=== PATIENT | female | born 1945 | race Caucasian/White ===

== ENCOUNTER 2022-01-31 15:50 | Outpatient (CLI) | payer MEDICARE, OTHER, SELFPAY ==
--- NOTE | ~2022-01-31 | DEXA_ITS ---
Bone Density Report Name: DAMARIS XIONG Age: 76 Sex: Female Ethnicity: White Date of : 1945 Indication: postmenopausal; screening for osteoporosis; height loss; Referring Provider: SEBASTIAN APODACA Study: Bone densitometry was performed. Exam Date: January 31, 2022 Accession number: [id number] Bone Density: Region BMD T-score Z-score Classification AP Spine(L1-L4) 1.277 2.1 4.5 Normal Femoral Neck (Left) 0.696 -1.4 0.7 Osteopenia Total Hip (Left) 0.974 0.3 2.0 Normal Femoral Neck (Right) 0.687 -1.5 0.6 Osteopenia Total Hip (Right) 0.883 -0.5 1.3 Normal Total Hip Mean 0.929 -0.1 1.7 Normal World Health Organization criteria for BMD impression classify patients as: Normal (T-score at or above -1.0), Osteopenia (T-score between -1.0 and -2.5), or Osteoporosis (T-score at or below -2.5). 10-year Fracture Risk(1): Major Osteoporotic Fracture 9.4% Hip Fracture 1.6% Reported Risk Factors: [place] (), Neck BMD=0.696, BMI=42.1 (1) FRAX(R) Version 3.08. Fracture probability calculated for an untreated patient. Fracture probability may be lower if the patient has received treatment. Clinical Information Provided by Patient: Patient maximum height was 63 Menopause Age: 55 Drinks caffeinated beverages Onset of menses at age 18 Number of children 1 Impression: The patient has low bone mass, based on the Right Femoral Neck T-score. The patient has an estimated ten-year risk of hip fracture of 1.6% and an estimated ten-year risk of major fracture of 9.4%, based on the WHO FRAX algorithm. Discussion: BONE DENSITY IS LOW AT ONE OR MORE SKELETAL SITES. This patient's lowest T-score is low at one or more skeletal sites. It meets the World Health Organization's (WHO) criteria for ?low bone mass? (T-score between -1.0 and -2.5). The patient's 10-year risk of fracture as calculated by FRAX is less than the threshold where pharmacological therapy is recommended by the National Osteoporosis Foundation (NOF). However, all treatment decisions require clinical judgment and consideration of individual patient factors, including patient preferences, comorbidities, previous drug use, risk factors not captured in the FRAX model (e.g., frailty, falls, vitamin D deficiency, increased bone turnover, interval significant decline in bone density) and possible under or overestimation of fracture risk by FRAX. The patient should follow a healthful lifestyle (good nutrition with adequate calcium and vitamin D, and appropriate weight-bearing exercise). Follow-Up: Consider repeating this study in 2 to 3 years to reassess this patient's status, or sooner if there is some new clinical indication. Reported by: CLARISA on 01/31/2022 4:21:00 PM.
== END 2022-01-31 15:51 | disposition home or self-care (01) ==
PROVIDERS: PCP Family Medicine; Visit Provider Family Medicine
DX: Z78.0 Asymptomatic menopausal state (principal); M85.852 Other specified disorders of bone density and structure, left thigh; M85.851 Other specified disorders of bone density and structure, right thigh
CPT/HCPCS: 77080

== ENCOUNTER 2022-07-06 12:07 | Outpatient (CLI) | payer MEDICARE, OTHER, SELFPAY | END 2022-07-06 12:08 | disposition home or self-care (01) | PROVIDERS: PCP Family Medicine; Visit Provider Physician Assistant Medical | DX: M79.672 Pain in left foot (principal) | CPT/HCPCS: 73630 ==

== ENCOUNTER 2023-05-06 15:25 | Emergency (ER) | payer MEDICARE, SELFPAY ==
--- NOTE | 2023-05-06 15:44 | ED.FEMALEGU ---
HPI - Female Genitourinary General Chief complaint: Urogenital-Female Stated complaint: urinary issue/ head cold Time Seen by Provider: 05/06/23 15:26 Source: patient Mode of arrival: ambulatory Limitations: no limitations History of Present Illness HPI Narrative: Patient is a 78-year-old female who presents with 1 day of pain with urination and frequency. Denies any low back pain, fever, chills, nausea, vomiting, diarrhea. Also reports 5 days of congestion and cough. Patient has been taking Tessalon Perles and thsm-yol-ijgjygi cold and flu medication. MD elicited complaint: dysuria Related Data Allergies Allergy/AdvReac Type Severity Reaction Status Date / Time Ltohelp-LNA-YjC Reductase Allergy Severe body aches Verified 05/06/23 15:37 Inhibitor [Ohmzhas-Xhf-Hli Reductase Inhibitor] Review of Systems Review of Systems: All systems reviewed & are unremarkable except as noted in HPI and below Constitutional: Constitutional: Denies chills, Denies fever(s), Denies headache(s), Denies malaise and Denies weakness Eyes: Eyes: Denies change in vision, Denies eye discharge and Denies irritation ENT: Denies otalgia, Denies headache(s), Reports nasal congestion, Denies nasal discharge, Denies sinus pain and Denies sore throat Cardiovascular: Cardiovascular: Denies chest pain, Denies edema, Denies palpitations and Denies dyspnea Respiratory: Respiratory: Reports cough and Denies dyspnea Gastrointestinal: Gastrointestinal: Denies abdominal pain, Denies diarrhea, Denies nausea and Denies vomiting Genitourinary: Genitourinary: Denies hematuria, Reports nocturia, Reports dysuria, Denies flank pain and Reports urinary urgency Musculoskeletal: Musculoskeletal: Denies back pain and Denies numbness Integumentary/Breasts: Skin/Breast: Denies pruritus and Denies rash Neurologic: Denies headache(s), Denies numbness and Denies weakness Psychiatric: Psychiatric: Reports no additional psychiatric complaints Endocrine: Endocrine: Denies palpitations PMFSH Past Medical History Medical History Colon polyp Last colonoscopy 2017 Essential hypertension Left leg pain Mixed hyperlipidemia Obesity, Class III, BMI 40-49.9 (morbid obesity) Osteopenia Surgical History Surgical History History of cholecystectomy History of lumpectomy (~1995) right breast History of partial knee replacement (~2015) left knee History of tonsillectomy and adenoidectomy History of total knee replacement (~2017) right knee History of urinary tract surgery (~1957) growth removal Family History Family History Father Family history of alcoholism, Onset Age: 74 Patient's father is , Onset Age: 74 Mother Family history of malignant neoplasm of ovary, Onset Age: 76 Social History Social History Smoking status: Never smoker Second hand tobacco smoke exposure: No Alcohol intake: current Substance use: never Substance use type: does not use Lack of Transportation: No Lack of Food: Never True Current Housing: I Have Housing Concerned About Future Housing: No Difficulty Paying Gas/Electric Bills: No Difficulty Paying for Meds: No Currently Unemployed: No Education: High School Diploma/GED Difficulty w/ Childcare or Family Care: No Living arrangements: with family Occupation/Education: retired Gender identity (if verbalized by the patient): Female Sexual Orientation (if Verbalized by the Patient): Straight or Heterosexual Spiritual care concerns: No Agree to blood products: Yes Comments At time of signature, agree with nursing past medical, surgical, social and family history. There is no relevant family history pertinent to the presenting complaint. Exam
[2023-05-06 15:47] VITALS: BP 132/61; PULSE 102; RESP 16; TEMP 36.9; O2SAT 98
== END 2023-05-06 16:20 | disposition home or self-care (01) ==
PROVIDERS: Emergency Provider Nurse Practitioner Family; PCP Family Medicine
DX: N30.01 Acute cystitis with hematuria (principal); B96.89 Other specified bacterial agents as the cause of diseases classified elsewhere; J06.9 Acute upper respiratory infection, unspecified; I10 Essential (primary) hypertension; E78.2 Mixed hyperlipidemia; E66.01 Morbid (severe) obesity due to excess calories; Z68.39 Body mass index [BMI] 39.0-39.9, adult; M85.80 Other specified disorders of bone density and structure, unspecified site; Z96.653 Presence of artificial knee joint, bilateral
CPT/HCPCS: 81003; 87077; 87086; 87186; 99213; G0463

== ENCOUNTER 2023-07-03 04:22 | Emergency (ER) | payer MEDICARE, SELFPAY ==
--- NOTE | ~2023-07-03 | XR_ITS ---
EXAMINATION: XR chest 2V DATE: 07/03/2023 04:57 INDICATION: Shortness of breath. Dizziness. TECHNIQUE: Frontal and lateral views of the chest were obtained. COMPARISON: None. FINDINGS: There is no pneumonia, pleural effusion, or pneumothorax. The heart size is normal. Surgica l clips in the right upper quadrant are likely from cholecystectomy. IMPRESSION: 1. No acute cardiopulmonary disease. Reviewed, dictated and finalized at location E.
--- NOTE | 2023-07-03 04:23 | ECG_ITS ---
SEE SCANNED COPY FOR CONFIRMED REPORT MTDD
[2023-07-03 04:24] VITALS: BP 119/51; PULSE 78; RESP 23; O2SAT 100
[2023-07-03 04:33] VITALS: TEMP 36.4
[2023-07-03 04:39] VITALS: PULSE 72; O2SAT 100
[2023-07-03 05:20] LABS: Basophils Percent Auto 0.5 % (0.2-1.2); Eosinophils Absolute Auto 0.3 K/mm3 (0-0.3); Hematocrit 44.9 % (37.0-47.0); Hemoglobin 14.2 g/dL (12.0-15.0); Immature Granulocyte Absolute 0.03 K/mm3 (0.00-0.031); Immature Granulocyte Percent A 0.4 % (0-0.5); Lymphocytes Absolute Auto 1.32 K/mm3 (0.9-3.2); Mean Corpuscular HGB Conc 31.6 g/dl (32-36); Mean Corpuscular Hemoglobin 27.3 pg (26-34); Mean Corpuscular Volume 86.3 fl (80-100); Mean Platelet Volume 10.9 fl (7.4-10.4); Monocytes Absolute Auto 0.4 K/mm3 (0.1-0.6); Monocytes Percent Auto 4.8 % (2.6-8.5); Neutrophils Absolute Auto 6.2 K/mm3 (1.3-6.7); Neutrophils Percent Auto 75.3 % (45.5-73.1); Platelet Count Result 215 k/mm3 (150-375); Red Cell Distribution Width 14.1 % (11.5-14.5); White Blood Count 8.3 K/mm3 (4.5-10.0)
[2023-07-03 05:32] LABS: Alanine Aminotransferase 18 U/L (6-35); Albumin Level 4.2 g/dL (3.5-5.1); Alkaline Phosphatase 74 U/L (38-126); Anion Gap 6 mmol/L (4-12); Aspartate Amino Transferase 22 U/L (14-36); Bilirubin,Total 1.3 mg/dL (0.2-1.3); Blood Urea Nitrogen 17 mg/dL (7-17); Calcium 9.3 mg/dL (8.4-10.2); Carbon Dioxide 23 mmol/L (22-30); Chloride 110 mmol/L (98-107); Estimated CRCL calculation 57 ml/min; Estimated Glomerular Filt Rate > 60; Glucose 121 mg/dL (65-110); Potassium 4.1 mmol/L (3.4-5.0); Sodium 139 mmol/L (137-145)
[2023-07-03 05:33] LABS: Lactic Acid Reflex 1.4 mmol/L (0.7-2.0)
[2023-07-03 05:35] LABS: Magnesium 2.2 mg/dL (1.6-2.3)
[2023-07-03 05:36] LABS: INR 0.9; Prothrombin Time 12.7 Seconds (11.1-14.7)
[2023-07-03 05:37] LABS: Partial Thromboplastin Time 29.1 Seconds (22.3-36.8)
[2023-07-03 05:41] VITALS: BP 138/112; PULSE 77; RESP 18; O2SAT 100
--- NOTE | 2023-07-03 05:43 | ED.GENADULT ---
HPI - General Adult General Chief complaint: Shortness of Breath/Dyspnea Stated complaint: lightheaded, dizzy, sob Time Seen by Provider: 07/03/23 04:26 History of Present Illness HPI narrative: Patient 78-year-old female who presents emergency department chief complaint of lightheadedness dizziness patient states that was up stairs when her got up and felt lightheaded the patient states she felt a little short of breath at the time of reports that she had a bit of tightness in her chest at this time patient reports that her symptoms are improved the patient denies passing out or syncopal episode the patient reports no vomiting or diarrhea Related Data Allergies Allergy/AdvReac Type Severity Reaction Status Date / Time Urxauub-MWS-GnB Reductase Allergy Severe body aches Verified 05/06/23 15:37 Inhibitor [Rcbrxrd-Nhj-Gyf Reductase Inhibitor] Review of Systems Review of Systems: A 10 system review of systems was completed on the patient and is negative except for what is stated in the HPI. Nursing and ancillary documentation was reviewed. [facility] Past Medical History Medical History Colon polyp Last colonoscopy 2016 Essential hypertension Left leg pain Mixed hyperlipidemia Obesity, Class III, BMI 40-49.9 (morbid obesity) Osteopenia Surgical History Surgical History History of cholecystectomy History of lumpectomy (~1995) right breast History of partial knee replacement (~2015) left knee History of tonsillectomy and adenoidectomy History of total knee replacement (~2017) right knee History of urinary tract surgery (~1957) growth removal Family History Family History Father Family history of alcoholism, Onset Age: 74 Patient's father is , Onset Age: 74 Mother Family history of malignant neoplasm of ovary, Onset Age: 76 Social History Social History Smoking status: Never smoker Second hand tobacco smoke exposure: No Alcohol intake: current Substance use: never Substance use type: does not use Lack of Transportation: No Lack of Food: Never True Current Housing: I Have Housing Concerned About Future Housing: No Difficulty Paying Gas/Electric Bills: No Difficulty Paying for Meds: No Currently Unemployed: No Education: High School Diploma/GED Difficulty w/ Childcare or Family Care: No Living arrangements: with family Occupation/Education: retired Gender identity (if verbalized by the patient): Female Sexual Orientation (if Verbalized by the Patient): Straight or Heterosexual Spiritual care concerns: No Agree to blood products: Yes Exam Narrative: GENERAL: Well-appearing, well-nourished, and in no acute distress. HEAD: Normocephalic, atraumatic. EYES: PERRLA and EOMI. ENT: Nares clear, no rhinorrhea or epistaxis. Mucous membranes moist. NECK: Supple. CHEST: Clear to auscultation. No respiratory distress. HEART: Regular rate and rhythm. No murmur heard. Normal peripheral pulses. ABDOMEN: Soft, nontender, nondistended, normal active bowel sounds. EXTREMITIES: Normal range of motion. No edema. SKIN: Warm, dry, no rash. NEURO: No focal deficits. Alert and oriented x3. PSYCH: Normal mood and affect. Course Vital Signs Vital signs: Vital Signs Pulse Rate 78 07/03/23 04:24 Respiratory Rate 23 H 07/03/23 04:24 Blood Pressure 119/51 L 07/03/23 04:24 Pulse Oximetry 100 07/03/23 04:24 Oxygen Delivery Room Air 07/03/23 04:24 Temperature 36.4 C 07/03/23 04:33 Pulse Rate 77 07/03/23 05:41 Respiratory Rate 18 07/03/23 05:41 Blood Pressure 138/112 H 07/03/23 05:41 Pulse Oximetry 100 07/03/23 05:41 Oxygen Delivery Room Air 07/03/23 04:
[2023-07-03 05:46] LABS: Appearance Urine Cloudy (Clear); Bacteria Urine None Seen /hpf; Bilirubin Urine Negative (Negative); Blood Urine Negative (Negative); Color Urine Yellow (Yellow); Glucose Urine UA Negative (Negative); Ketones Urine Trace mg/dL (Negative); Leukocyte Esterase Ur 1+ LEU/UL (Negative); Nitrate Urine Negative (Negative); Non Pathogenic Casts 0-2; Protein Urine Trace mg/dL (Negative); Specific Grav Ur 1.026 (1.001-1.035); Squamous Epithelial Cell Urine Few /hpf (Few); pH Urine 5.5 (5.0-9.0)
[2023-07-03 05:48] LABS: NT Pro B Type Natriuretic Pept 31 pg/mL (19.9-100); Troponin I < 0.012 ng/mL (0.000-0.034)
[2023-07-03 05:53] LABS: Add Urine Microscopic? YES
== END 2023-07-03 06:38 | disposition home or self-care (01) ==
PROVIDERS: Emergency Provider Emergency Medicine; PCP Family Medicine
DX: R55 Syncope and collapse (principal); N39.0 Urinary tract infection, site not specified; I10 Essential (primary) hypertension; E78.5 Hyperlipidemia, unspecified
CPT/HCPCS: 36415; 71046; 80053; 81001; 83605; 83735; 83880; 84484; 85025; 85610; 85730; 87086; 87088; 93005; 99284

== ENCOUNTER 2023-08-08 15:27 | Emergency (ER) | payer MEDICARE, SELFPAY ==
--- NOTE | ~2023-08-08 | XR_ITS ---
EXAM: XR abdomen obstructive series DATE: 08/08/2023 15:56 HISTORY: constipation- abdomen pain-rlq . COMPARISON: None available. FINDINGS: Clear lung bases. The dome of the liver is excluded from the ulzhh-sc-mwsn. Otherwise, no free air evident. Cholecystectomy clips. Normal bowel gas pattern. No organomegaly. Pelvic phlebolith s. Unremarkable volume of colonic feces. Severe lumbar degenerative disc disease. 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 IMPRESSION: No radiographic evidence of obstruction or ileus. Reviewed, dictated and finalized at location K.
--- NOTE | 2023-08-08 15:28 | ED.FEMALEGU ---
HPI - Female Genitourinary General Chief complaint: Urogenital-Female Stated complaint: stomach pain,constipation,urinary issue Time Seen by Provider: 08/08/23 15:28 Source: patient Mode of arrival: ambulatory Limitations: no limitations History of Present Illness HPI Narrative: Estefani is a 78-year-old female patient presenting to the clinic today with complaints of right lower abdominal pain, nausea, constipation, and urinary frequency. She reports no BM x4 days. No fever, chills, or vomiting. Is belching but having little flatulence. Does feel bloated. Is having a lot of tenderness to the right lower quadrant that is worse when laying on that side and worse with movement. Quality of the pain is dull and states that is pretty constant-rating the pain an 8/10 currently. She states she take some azo for urinary relief. History of cholecystectomy-40 years ago. Related Data Allergies Allergy/AdvReac Type Severity Reaction Status Date / Time Dgivccn-VWE-PcH Reductase Allergy Severe body aches Verified 08/08/23 15:39 Inhibitor [Hpukzpm-Ddb-Sqa Reductase Inhibitor] Review of Systems Review of Systems: Pertinent positives per HPI. Patient denies any fever, chills, rash, headache, visual changes, dizziness, cough, runny nose, sore throat, shortness of breath, chest pain, palpitations, vomiting, or diarrhea. [facility] Past Medical History Medical History Colon polyp Last colonoscopy 2016 Essential hypertension Left leg pain Mixed hyperlipidemia Obesity, Class III, BMI 40-49.9 (morbid obesity) Osteopenia Surgical History Surgical History History of cholecystectomy History of lumpectomy (~1995) right breast History of partial knee replacement (~2015) left knee History of tonsillectomy and adenoidectomy History of total knee replacement (~2017) right knee History of urinary tract surgery (~195) growth removal Family History Family History Father Family history of alcoholism, Onset Age: 74 Patient's father is , Onset Age: 74 Mother Family history of malignant neoplasm of ovary, Onset Age: 76 Social History Social History Smoking status: Never smoker Second hand tobacco smoke exposure: No Alcohol intake: current Substance use: never Substance use type: does not use Lack of Transportation: No Lack of Food: Never True Current Housing: I Have Housing Concerned About Future Housing: No Difficulty Paying Gas/Electric Bills: No Difficulty Paying for Meds: No Currently Unemployed: No Education: High School Diploma/GED Difficulty w/ Childcare or Family Care: No Living arrangements: with family Occupation/Education: retired Gender identity (if verbalized by the patient): Female Sexual Orientation (if Verbalized by the Patient): Straight or Heterosexual Spiritual care concerns: No Agree to blood products: Yes Comments At the time of my signature, I reviewed and agree with the nursing past medical, surgical, social, and family history. There is no relevant family history pertinent to the patient complaint. Exam Narrative: General: Well-developed, obese, in no apparent distress. Head: Normocephalic, atraumatic. Cardio: Regular rate and rhythm, s1 and s2 normal, no murmur appreciated. Resp: Clear to auscultation bilaterally, no rhonchi, rales, wheezing or rubs. Abdomen: Soft, pliable,distended per patient, bowel sounds present in all quadrants, tender to palpation in all quadrants but worse in the right lower quadrant, no organomegly, no CVAT tenderness. Course Course Emergency Course: Portions of this record may have been created with voice recognition software. Level of Care: Express Care Visit Ofe
[2023-08-08 15:36] VITALS: BP 157/102; PULSE 74; RESP 18; TEMP 36.6; O2SAT 100
== END 2023-08-08 16:11 | disposition short-term general hospital (02) ==
PROVIDERS: Emergency Provider Nurse Practitioner Family; PCP Family Medicine
DX: R10.31 Right lower quadrant pain (principal); R11.0 Nausea; R35.0 Frequency of micturition; I10 Essential (primary) hypertension; E78.2 Mixed hyperlipidemia; M85.80 Other specified disorders of bone density and structure, unspecified site; E66.01 Morbid (severe) obesity due to excess calories; Z68.39 Body mass index [BMI] 39.0-39.9, adult; Z96.653 Presence of artificial knee joint, bilateral
CPT/HCPCS: 74019; 81003; 87086; 99213; G0463

== ENCOUNTER 2023-08-08 16:30 | Emergency (ER) | payer MEDICARE, SELFPAY ==
--- NOTE | ~2023-08-08 | CT_ITS ---
EXAMINATION: CT abdomen pelvis w con DATE: 08/08/2023 17:49 INDICATION: RLQ pain TECHNIQUE: Computed tomography (CT) of the abdomen and pelvis was performed with 100 mL Omnipaque-350 intravenous contrast. Automated exposure control and iterative reconstruction technique were employe d. The dose-length product was 1210.66 mGy-cm. COMPARISON: None. FINDINGS: Lower thorax: Unremarkable Liver: Normal. Biliary/Gallbladder: Gallbladder is absent. Mild intra and extrahepatic bile duct dilation, likely se condary to cholecystectomy. Pancreas: No mass or duct dilation. Spleen: Normal. Adrenals:No mass. Kidneys: Patchy right lower pole enhancement. Moderate perinephric stranding/fluid. Mild right hydron ephrosis. Right urothelial enhancement. The left kidney is normal. 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 GI tract: Small hiatal hernia. No small or large bowel dilation. Normal appendix. Diverticulosis with out diverticulitis. Mesentery/Peritoneum: No ascites, mass, or free air. Retroperitoneum: No mass. Atherosclerotic abdominal aortic and/or arterial calcifications. Pelvis: Pelvic organs are within normal limits. Soft Tissues: Soft tissues and body wall unremarkable. Bones: No acute osseous finding. Chronic superior end plate deformity at T12. Chronic multilevel gra de 1 lumbar listheses likely secondary to degenerative changes. IMPRESSION: 4 mm calcification in the urinary bladder may represent a recently passed stone. Mild residual right hydronephrosis and moderate perirenal and periureteral inflammatory changes. Patchy right renal parenchymal and diffuse urothelial enhancement may be secondary to edema and bland inflammatory change or infection. Ascending infection with pyelonephritis should remain in the diffe rential. Reviewed, dictated and finalized at location K. IMPRESSION: 4 mm calcification in the urinary bladder may represent a recently passed stone . Mild residual right hydronephrosis and moderate perirenal and periureteral in flammatory changes. Patchy right renal parenchymal and diffuse urothelial enhancement may be second leatha to edema and bland inflammatory change or infection. Ascending infection wi th pyelonephritis should remain in the differential.
[2023-08-08 16:40] VITALS: BP 160/57; PULSE 80; RESP 19; TEMP 36.4; O2SAT 100
--- NOTE | 2023-08-08 16:48 | ED.ABDPAIN ---
HPI - Abdominal Pain General Chief Complaint: Abdominal Pain Stated Complaint: abd pain Time Seen by Provider: 08/08/23 16:34 History of Present Illness HPI narrative: 78-year-old female presenting to the emergency department for evaluation of 3 days of abdominal pain. Patient states that she has right lower quadrant pain that has been worsening. Patient had a initially presented to urgent care but was referred to the emergency department for further evaluation. Related Data Allergies Allergy/AdvReac Type Severity Reaction Status Date / Time Hsgdlbc-RII-IuW Reductase Allergy Severe body aches Verified 08/08/23 15:39 Inhibitor [Dltmtvn-Jan-Oju Reductase Inhibitor] Review of Systems Review of Systems: All systems reviewed & are unremarkable except as noted in HPI and below PMFSH Past Medical History Medical History Colon polyp Last colonoscopy 2016 Essential hypertension Left leg pain Mixed hyperlipidemia Obesity, Class III, BMI 40-49.9 (morbid obesity) Osteopenia Surgical History Surgical History History of cholecystectomy History of lumpectomy (~1995) right breast History of partial knee replacement (~2015) left knee History of tonsillectomy and adenoidectomy History of total knee replacement (~2018) right knee History of urinary tract surgery (~1957) growth removal Family History Family History Father Family history of alcoholism, Onset Age: 74 Patient's father is , Onset Age: 74 Mother Family history of malignant neoplasm of ovary, Onset Age: 76 Social History Social History Smoking status: Never smoker Second hand tobacco smoke exposure: No Alcohol intake: current Substance use: never Substance use type: does not use Lack of Transportation: No Lack of Food: Never True Current Housing: I Have Housing Concerned About Future Housing: No Difficulty Paying Gas/Electric Bills: No Difficulty Paying for Meds: No Currently Unemployed: No Education: High School Diploma/GED Difficulty w/ Childcare or Family Care: No Living arrangements: with family Occupation/Education: retired Gender identity (if verbalized by the patient): Female Sexual Orientation (if Verbalized by the Patient): Straight or Heterosexual Spiritual care concerns: No Agree to blood products: Yes Exam Narrative: APPEARANCE: Well appearing, no pain, no distress, well-nourished. HEAD: normocephalic, atraumatic. EYES: PERRLA/EOMI, conjunctivae clear. NOSE: Normal no drainage EARS:TMS clear with good light reflex. THROAT: Pharynx clear, no exudate. NECK: Supple. No adenopathy, no masses. RESPIRATORY: Airway patent, respirations nonlabored. Clear to auscultation bilaterally, no rales, rhonchi, wheezing. CARDIOVASCULAR: Regular rate and rhythm without murmurs rubs or gallops. ABDOMINAL: Right lower quadrant tenderness to palpation MUSCULOSKELETAL: Moves all extremities. Strength/ROM intact, No edema, No calf tenderness. NEURO: Alert. Cranial nerves II through XII intact. Grossly intact Course Vital Signs Vital signs: Vital Signs Temperature 97.6 F 08/08/23 16:40 Pulse Rate 80 08/08/23 16:40 Respiratory Rate 19 08/08/23 16:40 Blood Pressure 160/57 H 08/08/23 16:40 Pulse Oximetry 100 08/08/23 16:40 Oxygen Delivery Room Air 08/08/23 16:40 Temperature 97.6 F 08/08/23 16:40 Pulse Rate 75 08/08/23 18:16 Respiratory Rate 18 08/08/23 18:16 Blood Pressure 163/86 H 08/08/23 18:16 Pulse Oximetry 98 08/08/23 18:16 Oxygen Delivery Room Air 08/08/23 16:40 MDM - Abdominal Pain MDM Narrative Medical decision making narrative: 78-year-old female presents emergency department for evaluat
[2023-08-08 16:49] LABS: Basophils Percent Auto 0.3 % (0.2-1.2); Eosinophils Absolute Auto 0.1 K/mm3 (0-0.3); Eosinophils Percent Auto 0.7 % (0-4.4); Hematocrit 42.8 % (37.0-47.0); Hemoglobin 13.6 g/dL (12.0-15.0); Immature Granulocyte Absolute 0.03 K/mm3 (0.00-0.031); Immature Granulocyte Percent A 0.3 % (0-0.5); Lymphocytes Percent Auto 12.8 % (18.3-44.2); Mean Corpuscular HGB Conc 31.8 g/dl (32-36); Mean Corpuscular Hemoglobin 27.8 pg (26-34); Mean Corpuscular Volume 87.5 fl (80-100); Mean Platelet Volume 10.8 fl (7.4-10.4); Monocytes Absolute Auto 0.9 K/mm3 (0.1-0.6); Monocytes Percent Auto 8.4 % (2.6-8.5); Neutrophils Absolute Auto 7.9 K/mm3 (1.3-6.7); Neutrophils Percent Auto 77.5 % (45.5-73.1); Platelet Count Result 215 k/mm3 (150-375); Red Blood Count 4.89 M/mm3 (4.2-5.4); Red Cell Distribution Width 14.2 % (11.5-14.5); White Blood Count 10.2 K/mm3 (4.5-10.0)
[2023-08-08 16:58] LABS: Alanine Aminotransferase 23 U/L (6-35); Albumin Level 4.3 g/dL (3.5-5.1); Alkaline Phosphatase 75 U/L (38-126); Anion Gap 5 mmol/L (4-12); Aspartate Amino Transferase 26 U/L (14-36); Bilirubin,Total 1.4 mg/dL (0.2-1.3); Blood Urea Nitrogen 19 mg/dL (7-17); Calcium 9.2 mg/dL (8.4-10.2); Carbon Dioxide 28 mmol/L (22-30); Chloride 104 mmol/L (98-107); Estimated CRCL calculation 35 ml/min; Estimated Glomerular Filt Rate 37; Glucose 120 mg/dL (65-110); Lipase 110 U/L (23-300); Potassium 4.3 mmol/L (3.4-5.0); Sodium 137 mmol/L (137-145)
[2023-08-08] MEDS: HYDROmorphone HCL INJ (*CRX) 1 MG/ML SYR 0.5 MG IV PUSH (17:16)
[2023-08-08] MEDS: ONDANSETRON INJ 4 MG/2 ML VIAL IV PUSH (17:16)
[2023-08-08] MEDS: SODIUM CHLORIDE 0.9% IV 1,000 ML 999 ML IV CONT (17:16)
[2023-08-08 18:01] LABS: Add Urine Microscopic? YES; Appearance Urine Clear (Clear); Bacteria Urine None Seen /hpf; Bilirubin Urine Negative (Negative); Blood Urine Negative (Negative); Color Urine Dark Yellow (Yellow); Glucose Urine UA Negative (Negative); Ketones Urine Negative (Negative); Leukocyte Esterase Ur Negative LEU/UL (Negative); Need Manual Microscopic Reviewed; Nitrate Urine Positive (Negative); Non Pathogenic Casts 0-2; Protein Urine Negative (Negative); RBC Urine 0-2 /hpf (0-2); Specific Grav Ur 1.017 (1.001-1.035); Squamous Epithelial Cell Urine None Seen /hpf (Few); WBC Urine 0-5 /hpf (0-3)
[2023-08-08 18:16] VITALS: BP 163/86; PULSE 75; RESP 18; O2SAT 98
[2023-08-08] MEDS: CEPHALEXIN 500 MG CAPSULE PO (18:25)
== END 2023-08-08 18:32 | disposition home or self-care (01) ==
PROVIDERS: Physician Assistant; Emergency Provider Emergency Medicine; PCP Family Medicine
DX: N13.2 Hydronephrosis with renal and ureteral calculous obstruction (principal); R82.998 Other abnormal findings in urine; I10 Essential (primary) hypertension; E78.2 Mixed hyperlipidemia; E66.01 Morbid (severe) obesity due to excess calories; Z68.39 Body mass index [BMI] 39.0-39.9, adult; M85.80 Other specified disorders of bone density and structure, unspecified site; Z96.653 Presence of artificial knee joint, bilateral; Z86.010 Personal history of colon polyps; Z90.49 Acquired absence of other specified parts of digestive tract; R93.41 Abnormal radiologic findings on diagnostic imaging of renal pelvis, ureter, or bladder
CPT/HCPCS: 36415; 74019; 74177; 80053; 81001; 81003; 83690; 85025; 87086; 96361; 96374; 96375; 99284; A9270; J1170; J2405; J7030; Q9967

== ENCOUNTER 2024-08-18 07:18 | Outpatient (CLI) | payer MEDICARE, SELFPAY ==
--- OUTSIDE RECORDS SUMMARY | 2024-08-18 07:22 | XMS_ITS | Encounter Summary ---
Author Organization [facility] Address 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 Gender Identity Not on file Sexual Orientation Not on file documented as of this encounter Plan of Treatment Not on file documented as of this encounter Procedures Procedure Name Priority Date/Time Associated Diagnosis Comments PATHOLOGY Routine 03/23/2008 11:40 AM TRANSFORMER STOCK CLERK documented in this encounter Results * PATHOLOGY (03/23/2008 11:40 AM TRANSFORMER STOCK CLERK) FINAL REPORT [address] [address] Patient: DAMARIS XIONG : 1945 Procedure Date: 03/23/2008 Accession Date: 03/23/2008 Case No: [id number] Ordering Dr: LORA VILLAFANA Case types AW, BW, FW, NW and SH are performed by [facility], [place], [place] SURGICAL PATHOLOGY & NON-GYNECOLOGIC CYTOPATHOLOGY REPORT DIAGNOSIS LARGE INTESTINE, SIGMOID AT 20 CM, BIOPSY: - TUBULAR ADENOMA, FRAGMENTS. Specimen Description: Sigmoid- 20 cm. Operative Procedure: Colonoscopy. Patient Information/Histo ry/Diagnosis: Colon polyp(s). Adenomatous vs. hyperplastic vs. other. Gross: Received in one container labeled DhirajDamaris macias., sigmoid 20 cm are three white tissue fragments ranging from 0.2 cm to 0.3 cm. All are submitted in block A1. [facility] 03.23.2008 06:39 pm Microscopic: The slides are labeled [id number], Damaris Xiong Eloise. Sections of the sigmoid polyp at 20 cm show three pieces of tubular adenoma. There is no high-grade dysplasia or cancer. /[facility] 03.24.2008 09:48 am Staging Form: No. ELECTRONIC SIGNATURE FOR PRIYANKA STYLES MD- 03/24/08 10:12 am INTERFACE SYSTEM 03/23/2008 11:4 0 AM TRANSFORMER STOCK CLERK us Lora Villafana MD PATHOLOGY/CYTOLOGY ORDERABLES Final Result INTERFACE SYSTEM Refer to clinic/hospital department documented in this encounter Visit Diagnoses Not on filedocumented in this encounter
--- OUTSIDE RECORDS SUMMARY | 2024-08-18 07:22 | XMS_ITS | Clinical Summary ---
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
--- OUTSIDE RECORDS SUMMARY | 2024-08-18 07:22 | XMS_ITS | Continuity of Care Document ---
Author Organization [facility] [place] [address] [place] [address] [place] [address] Phone Care Team Providers Care Yarn Spooler Name Role Phone [facility] Unavailable Unavail able Jacques, Brittney Unavailable Unavailable Procedures Procedure Date Progressive Lens, Plastic Frames Deluxe Anti-reflective Coating Tax - Medical Advance Directives Directive Yes / No Effective Date File Name No Information Encounters Encounter Description Practice Location Reason(s) For Visit Diagnoses Date Provider Providers Copied on Encounter [facility], [address], [place], [place], [id number], [place] tel:[phone] [facility] No Information [facility] [address], [address], [place], [place], [id number] , [place]. tel:[phone] Referring Provider: Alexis Garza MD G, [address] [facility] [facility] [address], [place], [address]. tel:[phone] Provider: Brittney Hanna, [address] [place] [address], [address]. tel:[phone] Family History Family Member Type Diagnosis Age At Onset No Information Payers Payer name Insurance type Covered constitution party ID Authoriza tion(s) No Information Social History Type Description Quantity Date Captured Comments Sex Female Smoking Status No Information Chief Complaint And Reason For Visit No Information Reason For Referral Reason For Referral No Information History Of Present Illness Encounter Date Complaint History Of Prese nt Illness No Information Functional Status Date Functional Assessmen t No Information Instructions Date Instruction Additional Infor mation No Information Assessments Type Assessment Date No Information Patient Care Teams Name Effective Dates (start - stop) Status Members No Information
--- OUTSIDE RECORDS SUMMARY | 2024-08-18 07:23 | XMS_ITS | Patient Health Record ---
Author Organization [facility] Address [address] [place] [address] Care Team Providers Care Director International Name Role Phone Praneeth SMITH, [place] Primary Care Provider Unavailabl e Reason For Referral No Information Plan Of Treatment No Information Insurance Providers Payer Name Payer Address Payer Phone Subscriber Number Group Number Insured Name Patient Relationship to Insured Coverage Start Date Coverage End Date Medicare E2 [address] [address] [place] [address] [id number] Estefani Lazo Self - patient is the insured Mario Alberto Diaz [employer] [address] [place] [address] [id number] Estefani Lazo Self - patient is the insured
--- NOTE | 2024-08-18 07:53 | ECHO_ITS ---
Patient Info Name: Estefani Lazo Age: 79 years : 1945 Gender: Female Ht: 62 in Wt: 230 lbs BSA: 2.20 m2 HR: 85 bpm BP: 151 / 80 mmHg Technical Quality: Good Exam Date: 08/18/2024 8:03 AM Patient Status: O Admit Date: 08/18/2024 Exam Type: CA echo doppler color flow Complete two-dimensional, color flow and Doppler transthoracic echocardiogram is performed. Dip Tube Assembler Machine: Gina Huff Attending Provider: Consuelo Holland Summary 1. Complete two-dimensional, color flow and Doppler transthoracic echocardiogram is performed. 2. Left ventricular chamber dimension is normal. 3. Left ventricular systolic function is normal, estimated at 65-70. 4. The left ventricular diastolic function is grade I diastolic dysfunction. 5. E/e' 11 is mildly elevated. 6. There is mild aortic valve sclerosis. 7. There is mild aortic valve regurgitation. 8. The mitral valve has a mildly calcified annulus. 9. There is mild mitral valve regurgitation. 10. There is trace tricuspid valve regurgitation. 11. No pulmonary hypertension, estimated pulmonary arterial systolic pressure is 34 mmHg. Left Ventricle E/e' 11 is mildly elevated. Left ventricular chamber dimension is normal. Left ventricular systolic function is normal, estimated at 65-70. The left ventricular diastolic function is grade I diastolic dysfunction. Right Ventricle Right ventricular chamber dimension is normal. Right ventricular systolic function is normal and with normal TAPSE 2.7 cm. Left Atria Left atrial chamber dimension is normal. Right Atria Right atrial chamber dimension is normal. Aortic Valve The aortic valve is trileaflet. There is mild aortic valve sclerosis. There is no aortic valve stenosis. There is mild aortic valve regurgitation. Pulmonic Valve There is no pulmonic regurgitation. Mitral Valve The mitral valve has a mildly calcified annulus. There is no mitral valve stenosis. There is mild mitral valve regurgitation. Tricuspid Valve There is trace tricuspid valve regurgitation. No pulmonary hypertension, estimated pulmonary arterial systolic pressure is 34 mmHg. Pericardium/Pleural There is no pericardial effusion. Inferior Vena Cava Normal inferior vena cava with >50% collapse upon inspiration consistent with normal right atrial pressure, 5 mmHg. Aorta The aortic root size at the sinus of Valsalva is normal. Left Ventricular Outflow Tract Name Value Normal LVOT 2D LVOT Diameter 2.1 cm LVOT Doppler LVOT Peak Velocity 129 cm/s LVOT Peak Gradient 7 mmHg LVOT Mean Gradient 4 mmHg LVOT VTI 27 cm LVOT VTI/AV VTI Ratio 0.5 LVOT Stroke Volume 93 ml LVOT CO 7.4 l/min LVOT CI 3.4 l/min/m2 Pulmonic Valve Name Value Normal PV Doppler PV Peak Velocity 167 cm/s PV Peak Gradient 11 mmHg Mitral Valve Name Value Normal MV Regurgitation Doppler MR Peak Gradient 83 mmHg MV Diastolic Function MV E Peak Velocity 80 cm/s MV A Peak Velocity 110 cm/s MV E/A 0.7 MV Decel Time (PW) 246 ms MV Annular TDI MV E/e' (Septal) 12.8 MV E/e' (Lateral) 9.7 MV E/e' (Average) 11.2 Tricuspid Valve Name Value Normal TV Regurgitation Doppler TR Peak Velocity 268 cm/s TR Peak Gradient 29 mmHg Estimated PAP/RSVP RA Pressure 5 mmHg <=5 PA Systolic Pressure 34 mmHg <36 RV Systolic Pressure 34 mmHg <36 TV Annular TDI TV Lateral Alie s' Velocity 13.2 cm/s >=9.5 Aortic Valve Name Value Normal AV Doppler AV Peak Velocity 237 cm/s AV Peak Gradient 23 mmHg AV Mean Gradient 13 mmHg AV VTI 56 cm AV Area (Cont Eq VTI) 1.7 cm2 >=3.0 AV Area (Cont Eq Pradip) 1.9 cm2 AV DI (Pradip) 0.54 AV Regurgitation 2D LVOT Area 3.4 cm2 Ventricles Name Value Normal LV Dimensions 2D/MM IVS Diastolic Thickness (2D) 0.8 cm 0.6-1.0 LVID Diastole (2D) 4.8 cm 3.8-5.2 LVIW Diastolic Thickness (2D) 0.8 cm 0.6-0.9 LVID Systole (2D) 3.1 cm 2.2-3.5 LVOT Diameter 2.1 cm LV Mass (2D Cubed) 130.17 g 67.00-162.00 LV Mass Index (2D Cubed) 59 g/m2 43-95 Relative Wall Thickness (2D) 0.33 <=0.42 LV Fractional Shortening/Ejection Fraction 2D/MM LV Fractional Shortening (2D) 35 % 27-45 LV EF (2D Teichholz) 64 % LV Diastolic Volume (4C MOD) 78 ml LV EF (4C MOD) 65 % LV Diastolic Volume (2C MOD) 76 ml LV EF (2C MOD) 66 % LV Diastolic Volume (BP MOD) 80 ml 46-106 LV Diastolic Volume Index (BP MOD) 36 ml/m2 29-61 LV Systolic Volume (BP MOD) 27 ml 14-42 LV Systolic Volume Index (BP MOD) 12 ml/m2 8-24 LV EF (BP MOD) 66 % 54-74 LV Diastolic Length (4C) 7.3 cm LV Systolic Length (4C) 5.7 cm LV Stroke Volume (4C MOD) 51 ml Atria Name Value Normal LA Dimensions LA Volume (4C A-L) 46 ml LA Volume (BP A-L) 52 ml RA Dimensions RA Systolic Major [place] Length (4C) 4.8 cm 2.2-2.8 RA Area (4C) 10.9 cm2 <=18.0 Report Signatures
== END 2024-08-18 07:19 | disposition home or self-care (01) ==
LOC: ANHCARD 07:21
PROVIDERS: PCP Family Medicine; Visit Provider Student in an Organized Health Care Education/Training Program
DX: R93.1 Abnormal findings on diagnostic imaging of heart and coronary circulation (principal); R01.1 Cardiac murmur, unspecified
CPT/HCPCS: 93306

== ENCOUNTER 2024-11-26 10:23 | Outpatient (CLI) | payer MEDICARE, SELFPAY ==
--- NOTE | ~2024-11-26 | US_ITS ---
US venous doppler [facility] - 11/26/2024 11:07 CDT History: 79 years old Female with left lower extremity pain and swelling. Real-time sonographic images of the left lower extremity venous system were obtained. Color Doppler sonography and spectral waveform analysis were performed. No prior studies for comparison. The left sapheno-femoral junctions are patent. The left common femoral, superficial femoral, popliteal and posterior tibial veins are compressible and without evidence of echogenic thrombus. Impression: No evidence of deep venous thrombosis Reviewed, dictated and finalized at location N. Impression: No evidence of deep venous thrombosis
== END 2024-11-26 10:24 | disposition home or self-care (01) ==
PROVIDERS: PCP Family Medicine; Visit Provider Student in an Organized Health Care Education/Training Program
DX: R60.0 Localized edema (principal)
CPT/HCPCS: 93971